=== PATIENT | male | born 2000 | race Caucasian/White ===

== ENCOUNTER → 2023-10-26 11:18 | Outpatient (REF) | payer OTHER, SELFPAY | LOC: RCS 11:18 | PROVIDERS: ATTENDING PHYSICIAN Family Medicine | DX: F90.0 Attention-deficit hyperactivity disorder, predominantly inattentive type (principal) | CPT/HCPCS: 93005 ==

== ENCOUNTER → 2023-12-27 15:22 | Outpatient (REF) | payer OTHER, SELFPAY | LOC: RAD 15:22 | PROVIDERS: ATTENDING PHYSICIAN Family Medicine | DX: R91.1 Solitary pulmonary nodule (principal) | CPT/HCPCS: 71260; Q9967 ==